=== PATIENT | male | born 1990 | race Native Hawaiian/Other Pacific Islander ===

== ENCOUNTER 2017-03-27 23:41 | Emergency (ER) | payer OTHER ==
[~2017-03-27] VITALS: Ht 170.2 cm; Wt 90.7 kg
== END 2017-03-28 00:08 | disposition home or self-care (01) ==
LOC: ED 23:41
DX: M54.9 Dorsalgia, unspecified (principal)
CPT/HCPCS: 99281

== ENCOUNTER 2017-09-04 17:24 | Emergency (ER) | payer BC ==
[~2017-09-04] VITALS: Ht 170.2 cm; Wt 90.7 kg
[2017-09-04 18:07] LABS: PLATELET COUNT 127 K/uL (142-355)
[2017-09-04 18:16] LABS: POTASSIUM 3.8 mmol/L (3.6-5.2); SODIUM 132 mmol/L (136-145)
[2017-09-04 18:30] LABS: PARTIAL THROMBOPLASTIN TIME 32.8 SECONDS (24.5-33.6)
[2017-09-04 19:53] VITALS: BP 126/75; TEMP 98.5
== END 2017-09-04 19:54 | disposition home or self-care (01) ==
LOC: ED 17:24
DX: J01.90 Acute sinusitis, unspecified (principal); R51 Headache; R07.89 Other chest pain
CPT/HCPCS: 36415; 80053; 81000; 82550; 82553; 84484; 85027; 85610; 85730; 87081; 87804; 87880; 96361; 96374; 96375; 99284; J1100; J1200; J1885; J2405